=== PATIENT | female | born 1960 | race Hispanic/Latino ===

== ENCOUNTER 2016-07-18 22:59 | Emergency (ER) | payer OTHER ==
[~2016-07-18] VITALS: Ht 162.6 cm; Wt 68.9 kg
--- NOTE | 2016-07-18 23:29 | ED UPPER/LOWER EXTREMITY COMPL ---
History of Present Illness General Chief Complaint: Shoulder Injury Stated Complaint: RIGHT SHOULDER PAIN Source: patient Exam Limitations: no limitations Vital Signs & Intake/Output Vital Signs & Intake/Output Vital Signs Date Time Temp Pulse Resp B/P Pulse O2 O2 Flow FiO2 Ox Delivery Rate 07/19 0040 98.6 80 18 138/80 97 Room Air 07/18 2304 98.5 80 18 142/78 98 Room Air ED Intake and Output 07/19 0000 07/18 1200 Intake Total 0 Output Total Balance 0 Intake, Oral 0 Patient 152 lb Weight Allergies Coded Allergies: NO KNOWN ALLERGIES (07/18/16) Reconcile Medications Ibuprofen 800 MG TABLET 1 TAB PO TID pain Triage Note: PT TO TRIAGE WITH C/O R SHOULDER PAIN 10/10 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 PT UNABLE TO MOVE R SHOULDER, GAURDING IT. PT DENIES HEAD STRIKE, DENIES LOC. VSS. SLING APPLIED TO R SHOPULDER, ICE PACK PROVIDED. PT MEDICATED WITH MOTRIN 400MG PO IN TRIAGE. Triage Nurses Notes Reviewed? yes Onset: Abrupt Duration: minute(s):, constant Timing: single episode today Severity: moderate, severe Pain/Injury Location: Right: Shoulder. No Modifying Factors: none HPI: 56-year-old female comes into emergency room for further evaluation of right shoulder pain. Pain is sharp. Continuous. Patient reports that she was working upstairs when she tripped on the rug and fell forward on out stretched arm. Patient complaining of proximal right shoulder pain. Denies any head trauma or neck pain. Patient reports that she cannot lift her arm at all because it is too painful. Denies any other associated symptoms. (SINGH NELSON) Past History Travel History Traveled to [place] past 21 day No Medical History Any Pertinent Medical History? 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 No (SINGH NELSON) Review of Systems Review of Systems Constitutional: Reports: no symptoms. EENTM: Reports: no symptoms. Respiratory: Reports: no symptoms. Cardiovascular: Reports: no symptoms. Gastrointestinal/Abdominal: Reports: no symptoms. Genitourinary: Reports: no symptoms. Musculoskeletal: Reports: see HPI. Skin: Reports: no symptoms. Neurological/Psychological: Reports: no symptoms. Hematologic/Endocrine: Reports: no symptoms. Immunological: Reports: no symptoms. All Other Systems: Reviewed and Negative (SINGH NELSON) Physical Exam Physical Exam General Appearance: well developed/nourished, mild distress Head: atraumatic Eyes: Bilateral: normal appearance, EOMI. Ears, Nose, Throat: normal ENT inspection, hearing grossly normal Neck: normal inspection Cardiovascular/Respiratory: regular rate/rhythm, no respiratory distress Back: normal inspection Shoulder Right: pain with passive abduction, soft tissue tenderness proximal/ posterior humerus, patient not able to actively lift her arm, Neurologic/Tendon: normal sensation, normal motor functions, normal tendon functions, responds to pain, no evidence tendon injury, no pulse deficit Skin: intact, normal color, warm/dry Lymphatic: no anterior cervical samm (SINGH NELSON) Progress Differential Diagnosis: contusion, dislocation, fracture, septic arthritis, sprain, tendon injury, rotator cuff tear, labral tear, Plan of Care: Orders Procedure Date/time Status Durable Medical Equipment 07/19 0017 Active Diagnostic Imaging: Viewed by Me: Radiology Read. Discussed w/RAD: Radiology Read. Radiology Impression: SERVICE DATE: 07/18/16 EXAM TYPE: RAD - XRY- SHOULDER COMPLETE-RIGHT EXAMINATION: XR SHOULDER, RIGHT CLINICAL INFORMATION: Right shoulder injury. COMPARISON: Plain films of the right shoulder 03/01/2009. TECHNIQUE: AP external rotation, Grashey, scapular Y, and axillary views of the right shoulder, 5 views in total. FINDINGS: Mild degenerative changes involving the right acromioclavicular joint. No significant degenerative changes of the right glenohumeral joint. No acute fracture or dislocation of the right shoulder. The visualized portions of the right lung are grossly clear. IMPRESSION: No acute fracture or dislocation of the right shoulder. DICTATED BY: MARLENE WEBBER MD DATE/TIME DICTATED:07/18/162351 GRAVEL WHEELER:ROSA DATE/TIME TRANSCRIBED:07/18/162351 (SINGH NELSON) Departure Departure Disposition: HOME OR SELF CARE Condition: Stable Clinical Impression Primary Impression: Injury of right rotator cuff Referrals: TRENT COKER,NICOLE (PCP/Family) Additional Instructions: Take ibuprofen as prescribed. Follow-up with occupational medicine and orthopedic doctor. Return if any concerns worsening symptoms. Please go over all results of today's visit with your primary care doctor. Contact your primary care doctor to let them know you were here in the emergency room. There may be nonspecific findings which may not be related to your visit today here in the emergency room but may require further evaluation and chronic monitoring by your primary care doctor. If you had a laceration today the chance of foreign body always remains. You should follow-up with your primary care doctor for recheck in 3-5 days for a wound check. If you had an x-ray done there is a chance that a fracture could have been missed on initial read and you should follow-up with your primary care doctor for repeat x-rays if symptoms persist. If your blood pressure was elevated here in the emergency room please have rechecked by her primary care doctor within the next 48 hours by your primary care doctor. If you were prescribed a narcotic here in the emergency room or any type of controlled substances you're not allowed to drive while taking this medication or operate any type of heavy machinery. Narcotics can make you feel lightheaded dizziness nausea and can cause constipation. You may need to seed cone picker a stool softener. Thank you for choosing [facility] emergency room. Please return to the emergency room immediately if you have any other concerns worsening of symptoms. Departure Forms: Customer Survey General Discharge Information Prescriptions: Current Visit Scripts Ibuprofen 1 TAB PO TID #30 TAB Comments 07/19/2016 12:23:06 AM Patient clinically looks well. Follow-up with orthopedic doctor. Return if any concerns. Follow-up with occupational medicine. Likely a rotator cuff injury. Patient understands and agrees with plan of care. (SINGH NELSON) PA/DIE FILER Co-Sign Statement Statement: ED Attending supervision documentation- [] I saw and evaluated the patient. I have also reviewed all the pertinent lab results and diagnostic results. I agree with the findings and the plan of care as documented in the PA's/DIE FILER's documentation. [x] I have reviewed the ED Record and agree with the PA's/DIE FILER's documentation. [] Additions or exceptions (if any) to the PAs/DIE FILER's note and plan are summarized below: [] (ZEN COKER,NESSA Buck) Procedures Splinting Location: right shoulder Manual Alignment Performed: No Pre-Made Type: shoulder immobilizer Splint Applied By: splint applied by me Pre-Proc Neuro Vasc Exam: normal Post-Proc Neuro Vasc Exam: normal (ARLYN FATIMA,SINGH)
--- NOTE | 2016-07-18 23:58 | RADIOLOGY REPORT ---
EXAMINATION: XR SHOULDER, RIGHT CLINICAL INFORMATION: Right shoulder injury. COMPARISON: Plain films of the right shoulder 03/01/2009. TECHNIQUE: AP external rotation, Grashey, scapular Y, and axillary views of the right shoulder, 5 views in total. FINDINGS: Mild degenerative changes involving the right acromioclavicular joint. No significant degenerative changes of the right glenohumeral joint. No acute fracture or dislocation of the right shoulder. The visualized portions of the right lung are grossly clear. IMPRESSION: No acute fracture or dislocation of the right shoulder.
[2016-07-19] MEDS ORDERED: IBUPROFEN800 M1 PO (00:17)
[2016-07-19 00:40] VITALS: BP 138/80
== END 2016-07-19 00:42 ==
LOC: ERH 22:59
DX: S46.001A Unspecified injury of muscle(s) and tendon(s) of the rotator cuff of right shoulder, initial encounter (principal); W18.09XA Striking against other object with subsequent fall, initial encounter; Y92.232 Corridor of hospital as the place of occurrence of the external cause; Y93.9 Activity, unspecified
CPT/HCPCS: 73030-RT

== ENCOUNTER → 2016-08-19 | Day surgery (SDC) | payer OTHER ==
[~2016-08-19] VITALS: Ht 162.6 cm; Wt 68.9 kg
[~2016-08-19] MED LIST: IBUPROFEN800 M1 PO
--- NOTE | 2016-08-19 12:15 | Operative Report ---
Operative/Inv Procedure Report Surgery Date: 08/19/16 Name of Procedure: #1 arthroscopic rotator cuff repair of supraspinatus and subscapularis tear right shoulder #2 arthroscopic distal clavicle resection right shoulder #3 arthroscopic acromioplasty right shoulder #4 arthroscopic glenohumeral debridement and biceps tenotomy right shoulder Pre-Operative Diagnosis: #1 rotator cuff tear subscapularis and supraspinatus tendons right shoulder #2 acromioclavicular arthritis right shoulder #3 subacromial impingement right shoulder #4 biceps tendinitis right shoulder Post-Operative Diagnosis: Same Estimated Blood Loss: scant Surgeon/Machine Operator Cane Cutter: LENY COKER,FRANSISCO FATIMA Anesthesia: general endotracheal tube, block Complications: None Condition: Stable return to PACU Operative Indication: 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 She complained of pain and weakness in the right shoulder and an MRI confirmed a partial tear of her subscapularis tendon, a dislocated biceps tendon and a tear of her supraspinatus of the right shoulder. X-rays confirmed a subacromial spur as well as spurring and narrowing of the a C joint. Operative/Procedure Note Note: The patient received preoperative antibiotics in the preoperative area and then had a scalene block administered. She was then taken to the operating room and a general anesthetic was administered. She was placed in a beachchair position and all bony prominences are well-padded. The right shoulder and upper extremity were then prepped and draped in usual sterile fashion. The surgical procedure was assisted by my physician's academic assistant. His presence was needed throughout the case for manipulation and positioning of the surgical extremity as well as positioning the surgical instrument. Due to the complexity of her shoulder condition the skilled set of a physician's academic assistant was needed throughout the case. During the surgical case the registered nurse surgical services was working at the back table and was not available for assistance. Physician's assistance services including preoperative and postoperative assessment and documentation, patient positioning, prepping and draping, intraoperative positioning and retraction. Closure and postoperative dressing and postoperative orders. The significantly facilitated the procedure limiting operative time in the associated coexisting morbidities A posterior portal was made and the glenohumeral joint was entered. The patient had marked synovitis in the glenohumeral joint. The biceps tendon was inspected and found to be markedly frayed. For that reason a biceps tenotomy was done with a scissors punch. A motorized shaver and electrocautery was then used to ablate the marked synovitis in the shoulder. The subscapularis tendon was inspected. The patient had torn the superior half of the subscapularis tendon. A motorized shaver was then used to debride the cortical bone at the insertion of the subscapularis tendon. 2 sutures were then placed through the superior half of the subscapularis tendon and the tendon was repaired down to bleeding bone using a swivel lock anchor. Tendon moved as a unit with internal and external rotation. Attention was then turned to the supraspinatus tendon. The patient had a tear which was approximately 75% of the cross-sectional thickness. The remaining tendon was debrided with a motorized shaver and the anatomical footprint was appreciated with a motorized shaver down to bleeding bone. The instruments were withdrawn from the glenohumeral joint and repositioned in the subacromial space. Through a lateral portal an arthroscopic ablator was inserted and a bursectomy was performed. Bursa was removed from the anterior acromion. The patient had a large anterior acromial spur. Using a motorized shaver the acromial spur was removed in total. The acromioclavicular joint was inspected patient had a large inferior spur and narrowing of the a C joint. A motorized was used to remove 10 mm of bone from the distal clavicle Using the Arthrex suture bridge technique 2 anchors were placed at the edge of the articular surface and sutures were passed anteriorly and posteriorly through the supraspinatus tendon. These were temporarily taken out through an anterior portal. 2 additional anchors were then placed distally. Sutures were then placed in a crisscross fashion to bring the torn supraspinatus tendon tightly down over the bleeding anatomical footprint. An excellent tight repair was achieved. The portals were then closed with 4-0 nylon sutures followed by light compressive dressing. The patient's arm was then placed in a comfort sling. She was returned to the recovery room in excellent condition. Discharge Disposition: PACU
== END ==
LOC: STS 03:41
DX: S46.011A Strain of muscle(s) and tendon(s) of the rotator cuff of right shoulder, initial encounter (principal); Y99.0 Civilian activity done for income or pay; Y93.89 Activity, other specified; Y92.89 Other specified places as the place of occurrence of the external cause; M75.41 Impingement syndrome of right shoulder; M19.011 Primary osteoarthritis, right shoulder; M75.21 Bicipital tendinitis, right shoulder
CPT/HCPCS: J0171; J0690; J2250; J2405; J2795